=== PATIENT | female | born 1990 | race Caucasian/White ===

== ENCOUNTER 2018-09-04 22:47 | Emergency (ER) | payer SELFPAY ==
[~2018-09-04] VITALS: Ht 160 cm; Wt 63.9 kg
[2018-09-04 23:05] VITALS: BP 130/83; PULSE 77; RESP 18; Ht 160 cm; Wt 63.9 kg
== END 2018-09-04 23:10 | disposition left against medical advice (07) ==
LOC: FTE 22:47
DX: Z53.21 Procedure and treatment not carried out due to patient leaving prior to being seen by health care provider (principal)